=== PATIENT | female | born 1970 | race Caucasian/White ===

== ENCOUNTER 2018-10-22 10:57 | Outpatient (CLI) | payer MEDICARE | END 2018-10-22 10:58 | disposition home or self-care (01) | LOC: DI 10:57 | PROVIDERS: ATTEND Internal Medicine Cardiovascular Disease | DX: I11.0 Hypertensive heart disease with heart failure (principal); I50.42 Chronic combined systolic (congestive) and diastolic (congestive) heart failure; I25.2 Old myocardial infarction | CPT/HCPCS: 93306 ==